=== PATIENT | female | born 1960 | race Two or more races ===

== ENCOUNTER 2017-08-26 16:36 | Emergency (ER) | payer MEDICAID ==
[2017-08-26 17:25] VITALS: BP 137/79
[2017-08-26] MEDS ORDERED: ALUM & MAG HYDROX-SIMETH LIQ(MAALOX) 30 ML PO ONE (18:30)
[2017-08-26] MEDS ORDERED: LIDOCAINE VISCOUS 2% 15ML UD PO ONE (18:30)
== END 2017-08-26 18:59 | disposition home or self-care (01) ==
LOC: ER 16:41
DX: K21.0 Gastro-esophageal reflux disease with esophagitis (principal)
CPT/HCPCS: 71046; 93005

== ENCOUNTER 2022-02-14 20:54 | Inpatient (IN) | payer MEDICAID ==
[~2022-02-14] VITALS: Ht 160 cm; Wt 106.6 kg
[2022-02-14 22:23] LABS: Basophils # (auto) 0.1 10 ^3/uL (0-0.2); Basophils % (auto) 0.7 % (0.0-2.0); Eosinophils # (auto) 0.3 10 ^3/uL (0-0.8); Eosinophils % (auto) 2.9 % (0.0-7.0); Hematocrit 41.2 % (36.0-46.0); Hemoglobin 13.7 g/dL (12.2-16.2); Lymphocytes # (auto) 3.5 10 ^3/uL (0.4-5.4); Lymphocytes % (auto) 39.4 % (10.0-50.0); Mean Corpuscular Hemoglobin 30.1 pg (28.0-32.0); Mean Corpuscular Hgb Conc. 33.2 g/dL (32.0-36.0); Mean Corpuscular Volume 90.6 fL (80.0-100.0); Monocytes # (auto) 0.7 10 ^3/uL (0-1.3); Monocytes % (auto) 7.7 % (0.0-12.0); Neutrophils # (auto) 4.4 10 ^3/uL (1.6-8.6); Neutrophils % (auto) 49.3 % (37.0-80.0); Red Blood Cells 4.55 10^6/uL (4.0-5.20); Red Cell Distribution Width 12.9 % (11.8-14.3)
[2022-02-14 22:40] LABS: Albumin 3.6 g/dL (3.4-5.0); BUN/Creatinine Ratio 18.3; Calcium 8.5 mg/dL (8.5-10.1); Magnesium 2.3 mg/dL (1.6-2.6); Potassium 3.6 mmol/L (3.5-5.1)
[2022-02-14 22:42] LABS: Bilirubin, Total 0.3 mg/dL (0.2-1.0); Total Protein 7.5 g/dL (6.4-8.2)
[2022-02-15 05:41] LABS: Urine Bacteria NONE SEEN /hpf (None Seen); Urine Blood Negative /uL (Negative); Urine Hyaline Cast FEW /lpf (0 - 2); Urine Mucus FEW (None Seen); Urine Specific Gravity 1.021 (1.001-1.035); Urine WBC 20 /hpf (0 - 5)
[2022-02-15] MEDS ORDERED: NITROGLYCERIN 0.4 MG SL TAB SL PRN (08:45)
[2022-02-15] MEDS ORDERED: MORPHINE SULFATE INJ 2 MG/ml SYRG IV PRN (08:45)
[2022-02-15] MEDS: ENOXAPARIN SOD 40 MG/0.4 ML SYRINGE SC SCH (09:35)
[2022-02-15] MEDS ORDERED: cefTRIAXone 1GM/50ML D5W 50 ML IV ONE (12:00)
[2022-02-15 13:55] LABS: Cholesterol 201 mg/dL (< 200); HDL Cholesterol 39 mg/dL (40-59); LDL Cholesterol 153 mg/dL (< 100); Triglycerides 221 mg/dL (< 150)
[2022-02-15] MEDS ORDERED: FUROSEMIDE 20 MG/2 ML VIAL ONE (18:13)
[2022-02-15 22:00] VITALS: BP 149/68
[2022-02-16 05:00] VITALS: BP 137/70
[2022-02-16 06:25] LABS: Basophils # (auto) 0.1 10 ^3/uL (0-0.2); Basophils % (auto) 0.9 % (0.0-2.0); Eosinophils # (auto) 0.3 10 ^3/uL (0-0.8); Eosinophils % (auto) 3.3 % (0.0-7.0); Hematocrit 40.9 % (36.0-46.0); Hemoglobin 13.8 g/dL (12.2-16.2); Lymphocytes # (auto) 2.8 10 ^3/uL (0.4-5.4); Lymphocytes % (auto) 32.9 % (10.0-50.0); Mean Corpuscular Hemoglobin 30.4 pg (28.0-32.0); Mean Corpuscular Hgb Conc. 33.8 g/dL (32.0-36.0); Mean Corpuscular Volume 89.8 fL (80.0-100.0); Monocytes # (auto) 0.6 10 ^3/uL (0-1.3); Monocytes % (auto) 7.3 % (0.0-12.0); Neutrophils # (auto) 4.8 10 ^3/uL (1.6-8.6); Neutrophils % (auto) 55.6 % (37.0-80.0); Nucleated Red Blood Cells % 0.1 %; Red Blood Cells 4.55 10^6/uL (4.0-5.20); Red Cell Distribution Width 13.4 % (11.8-14.3); White Blood Cell 8.6 10^3/uL (4.4-10.8)
[2022-02-16 06:51] LABS: Albumin 3.4 g/dL (3.4-5.0); Calcium 8.8 mg/dL (8.5-10.1); Potassium 4.5 mmol/L (3.5-5.1)
[2022-02-16 06:56] LABS: BUN/Creatinine Ratio 23.1; Bilirubin, Total 0.5 mg/dL (0.2-1.0); Total Protein 7.1 g/dL (6.4-8.2)
[2022-02-16 09:00] VITALS: BP 124/35
[2022-02-16] MEDS: cefTRIAXone 1GM/50ML D5W 50 ML IV SCH ×2 (10:22→12:03)
[2022-02-16] MEDS: ENOXAPARIN SOD 40 MG/0.4 ML SYRINGE SC SCH (10:22)
[2022-02-16] MEDS ORDERED: ASPirin 81 mg TAB PO ONE (10:30)
[2022-02-16 13:00] VITALS: BP 151/70
[2022-02-16 16:32] VITALS: BP 147/67
[2022-02-16] MEDS ORDERED: hydrALAZINE HCL 20 MG/ML VL IV PRN (17:15)
[2022-02-16 20:00] VITALS: BP 155/76
[2022-02-16] MEDS ORDERED: ACETAMINOPHEN 325 MG TAB PO PRN (21:00)
[2022-02-16] MEDS: ATORVASTATIN 20 MG TAB PO SCH (21:21)
[2022-02-16 21:52] VITALS: BP 155/76
[2022-02-17] VITALS (7 sets, daily range): BP systolic 123–150; BP diastolic 51–82
[2022-02-17] MEDS: ASPirin 81 mg TAB PO SCH (11:49)
[2022-02-17] MEDS: CIPROFLOXACIN HCL 500 MG TAB PO SCH ×2 (11:49→21:52)
[2022-02-17] MEDS: ENOXAPARIN SOD 40 MG/0.4 ML SYRINGE SC SCH (11:53)
[2022-02-17] MEDS: ATORVASTATIN 20 MG TAB PO SCH (21:52)
[2022-02-18 04:24] VITALS: BP 119/59
[2022-02-18 08:00] VITALS: BP 147/77
[2022-02-18 09:22] VITALS: BP 147/77
[2022-02-18] MEDS: CIPROFLOXACIN HCL 500 MG TAB PO SCH ×2 (10:20→20:25)
[2022-02-18] MEDS: ENOXAPARIN SOD 40 MG/0.4 ML SYRINGE SC SCH (10:20)
[2022-02-18] MEDS: ASPirin 81 mg TAB PO SCH (10:20)
[2022-02-18 12:48] VITALS: BP 134/83
[2022-02-18 16:34] VITALS: BP 151/82
[2022-02-18] MEDS: ATORVASTATIN 20 MG TAB PO SCH (20:25)
[2022-02-18 22:00] VITALS: BP 142/74
[2022-02-19 05:00] VITALS: BP 113/88
[2022-02-19 09:00] VITALS: BP 111/60
[2022-02-19] MEDS: ENOXAPARIN SOD 40 MG/0.4 ML SYRINGE SC SCH (09:19)
[2022-02-19] MEDS: ASPirin 81 mg TAB PO SCH (09:20)
[2022-02-19] MEDS: CIPROFLOXACIN HCL 500 MG TAB PO SCH (09:20)
[2022-02-19] MEDS ORDERED: ASPI-463 PO (09:59)
[2022-02-19] MEDS ORDERED: CIPR-173 PO (09:59)
[2022-02-19] MEDS ORDERED: ATO40T PO (09:59)
[2022-02-19 10:52] VITALS: BP 111/60
== END 2022-02-19 11:45 | disposition home or self-care (01) | DRG 45 ==
LOC: ER 20:54 → TELE 02-15 08:49 → TELE-EAST 02-15 21:05
PROVIDERS: ADMIT Registered Nurse; ATTEND Family Medicine
DX: I63.9 Cerebral infarction, unspecified (principal); G81.94 Hemiplegia, unspecified affecting left nondominant side; E66.01 Morbid (severe) obesity due to excess calories; N39.0 Urinary tract infection, site not specified; I10 Essential (primary) hypertension; E78.00 Pure hypercholesterolemia, unspecified; Z68.41 Body mass index [BMI] 40.0-44.9, adult; Z20.822 Contact with and (suspected) exposure to COVID-19; G47.10 Hypersomnia, unspecified
CPT/HCPCS: 36415; 70450; 70551; 71045; 80053; 80061; 81001; 83036; 83735; 83880; 84484; 85025; 87086; 93005; 93306; 93886; 97163; G0378; J0696